=== PATIENT | male | born 1955 | race African-American/Black ===

== ENCOUNTER 2016-11-21 16:54 | Emergency (ER) | payer SELFPAY ==
[~2016-11-21] VITALS: Ht 180.3 cm; Wt 102.0 kg
[2016-11-21] MEDS ORDERED: TRAMADOL HCL50 MG PO (18:37)
[2016-11-21] MEDS ORDERED: LEVAQUIN750 MG PO (18:37)
[2016-11-21] MEDS ORDERED: MOTRIN800 MG PO (18:37)
[2016-11-21 19:07] VITALS: BP 125/79
== END 2016-11-21 19:17 | disposition home or self-care (01) ==
LOC: EME 16:54 → RME 16:54
PROC: 3E0234Z Introduction of Serum, Toxoid and Vaccine into Muscle, Percutaneous Approach (ICD-10-PCS; principal; 2016-11-21)
DX: L03.116 Cellulitis of left lower limb (principal); Z23 Encounter for immunization; F17.200 Nicotine dependence, unspecified, uncomplicated
CPT/HCPCS: 73630; 99281; 99283

== ENCOUNTER 2017-07-28 20:26 | Emergency (ER) | payer SELFPAY ==
[~2017-07-28] VITALS: Ht 180.3 cm; Wt 78.3 kg
[~2017-07-28 20:26] MED LIST: LEVAQUIN750 MG PO; MOTRIN800 MG PO; TRAMADOL HCL50 MG PO
[2017-07-28 21:03] LABS: BASOPHIL (%) 0.2 % (0-1); EOSINOPHIL (%) 0.8 % (0-5); EOSINOPHIL COUNT 0.1 K/uL (0-0.3); HEMATOCRIT 27.4 % (38.0-50.0); HEMOGLOBIN 8.2 G/DL (12.5-16.6); IMMATURE GRANULOCYTE (%) 0.8 % (0.0-0.7); LYMPHOCYTE (%) 6.4 % (15-42); LYMPHOCYTE COUNT 0.8 K/uL (1.0-2.8); MCHC 29.9 G/DL (30.0-36.0); MCV 76.8 FL (86-99); MONOCYTE (%) 7.4 % (3-12); MONOCYTE COUNT 0.9 K/uL (0-0.8); NEUTROPHIL (%) 84.4 % (45-76); NEUTROPHIL COUNT 10.6 K/uL (1.8-6.4); PLATELET COUNT 385 K/uL (156-360); RBC DIS.WIDTH-CV 19.3 % (11.8-14.6); RBC DIS.WIDTH-SD 52.9 % (39-53); RED BLOOD COUNT 3.57 M/uL (4.00-5.50); WHITE BLOOD COUNT 12.6 K/uL (4.1-10.2)
[2017-07-28 21:12] LABS: ALBUMIN 3.1 g/dL (3.2-4.8); CHLORIDE 104 mEq/L (99-109); POTASSIUM 3.5 mEq/L (3.7-5.4)
[2017-07-28 21:13] LABS: SODIUM 138 mEq/L (136-147)
[2017-07-28 21:15] LABS: GLUCOSE 115 mg/dL (70-99); TOTAL PROTEIN 7.2 g/dL (6.4-8.3)
[2017-07-28 21:17] LABS: TOTAL BILIRUBIN 0.2 mg/dL (0.0-1.0)
[2017-07-28 21:18] LABS: SERUM ETHYL ALCOHOL < 10 mg/dL
[2017-07-28 21:19] LABS: ALKALINE PHOSPHATASE 93 IU/L (3-129); CREATININE 1.3 mg/dL (0.6-1.3); GFR ESTIMATE (CALCULATED) > 59 mL/min/ (58.99-99999)
[2017-07-28 21:20] LABS: AST (GOT) 21 IU/L (2-34)
[2017-07-28 21:21] LABS: UREA NITROGEN (BUN) 13 mg/dL (9-23)
[2017-07-28 21:22] LABS: ALT (GPT) 10 IU/L (3-49); SALICYLATE < 5.0 MG/DL (15-30)
[2017-07-28 21:23] LABS: ACETAMINOPHEN (TYLENOL) < 10 mcg/mL (10-30)
[2017-07-29 01:39] LABS: AMPHETAMINE NEGATIVE (500 ng/mL); BARBITURATES NEGATIVE (200 ng/mL); BENZODIAZEPINES NEGATIVE (150 ng/mL); COCAINE PRESUMPTIVE POSITIVE (150 ng/mL); METHADONE NEGATIVE (200 ng/mL); METHAMPHETAMINE NEGATIVE (500 ng/mL); OPIATES (MORPHINE) NEGATIVE (100 ng/mL); PHENCYCLIDINE NEGATIVE (25 ng/mL); THC CANNABINOIDS NEGATIVE (50 ng/mL); TRICYCLIC ANTIDEPRESSANTS NEGATIVE (300 ng/mL)
[2017-07-29 01:40] LABS: BUPRENORPHINE NEGATIVE (10 ng/mL); OXYCODONE PRESUMPTIVE POSITIVE (100 ng/mL); PROPOXYPHENE NEGATIVE (300 ng/mL)
[2017-07-29 02:12] LABS: TROP-I INTERPRETATION NEGATIVE; TROPONIN-I < 0.01 ng/mL (0.0-0.30)
[2017-07-29 03:23] VITALS: BP 107/61
== END 2017-07-29 03:25 | disposition home or self-care (01) ==
LOC: EME 20:26
PROVIDERS: Emergency Medicine
DX: T40.2X1A Poisoning by other opioids, accidental (unintentional), initial encounter (principal); R41.82 Altered mental status, unspecified; Z85.841 Personal history of malignant neoplasm of brain; D64.9 Anemia, unspecified; F14.10 Cocaine abuse, uncomplicated; F17.200 Nicotine dependence, unspecified, uncomplicated
CPT/HCPCS: 70450; 80053; 84484; 84999; 85025; 93005; 99281; 99284; G0480; J2310